=== PATIENT | male | born 1965 | race Caucasian/White ===

== ENCOUNTER 2020-09-18 16:34 | Outpatient (CLI) | payer BC, SELFPAY ==
--- NOTE | ~2020-09-18 | CT_ITS ---
EXAMINATION: CT abdomen pelvis w con INDICATION: Left and right lower quadrant pain TECHNIQUE: Computed tomographic images of the abdomen and pelvis were obtained after the administrati on of 100 cc of Omnipaque 350 intravenous contrast. The dose-length product (DLP) was 1118.24 mGy-cm. Automated exposure control and iterative reconstruction technique were employed. COMPARISON: 02/15/2014 FINDINGS: Calcified nodules of the visualized lung bases are consistent with old granulomatous diseas e. The heart size is normal. The liver is diffusely low in attenuation when compared with the spleen, consistent with hepatic steatosis. The spleen, pancreas, and adrenal glands are normal. Stones are p resent in the nondistended gallbladder. Cysts of the kidneys measure up to 8 mm on the right. There i s no free intraperitoneal gas or evidence of bowel obstruction. No pathologically enlarged abdominal or pelvic lymph nodes are identified. The appendix is normal. There are small bilateral inguinal doug ias containing fat. There is moderate lumbar spondylosis at L5-S1. IMPRESSION: 1. No CT correlate for the patient's symptoms. 2. Cholelithiasis without evidence of cholecystitis. 3. Diffuse hepatic steatosis. Reviewed, dictated and finalized at location A. HALMIC PATHOLOGIST
[2020-09-18 17:05] LABS: Basophils Absolute Auto 0.1 K/mm3 (0.0-0.1); Basophils Percent Auto 1.1 % (0.2-1.2); Eosinophils Absolute Auto 0.3 K/mm3 (0-0.3); Eosinophils Percent Auto 3.1 % (0-4.4); Hematocrit 46.8 % (42.0-52.0); Hemoglobin 16.2 g/dL (14.0-18.0); Immature Granulocyte Absolute 0.03 K/mm3 (0.00-0.031); Immature Granulocyte Percent A 0.3 % (0-0.5); Lymphocytes Absolute Auto 2.53 K/mm3 (0.9-3.2); Lymphocytes Percent Auto 24.5 % (18.3-44.2); Mean Corpuscular HGB Conc 34.6 g/dl (32-36); Mean Corpuscular Hemoglobin 31.5 pg (26-34); Mean Corpuscular Volume 90.9 fl (80-100); Mean Platelet Volume 9.1 fl (7.4-10.4); Monocytes Absolute Auto 0.8 K/mm3 (0.1-0.6); Monocytes Percent Auto 7.4 % (2.6-8.5); Neutrophils Absolute Auto 6.6 K/mm3 (1.3-6.7); Neutrophils Percent Auto 63.6 % (45.5-73.1); Platelet Count Result 241 k/mm3 (150-375); Red Blood Count 5.15 M/mm3 (4.6-6.20); Red Cell Distribution Width 13.1 % (11.5-14.5); White Blood Count 10.3 K/mm3 (4.5-10.0)
[2020-09-18 17:29] LABS: Erythrocyte Sedimentation Rate 9 mm/hr (0-20)
[2020-09-18 17:32] LABS: Estimated Glomerular Filt Rate > 60
[2020-09-18 17:52] LABS: Alanine Aminotransferase 45 U/L (4-50); Albumin Level 4.6 g/dL (3.5-5.1); Alkaline Phosphatase 59 U/L (38-126); Amylase 40 U/L (30-110); Anion Gap 6 mmol/L (8-16); Aspartate Amino Transferase 39 U/L (17-59); Bilirubin,Total 0.9 mg/dL (0.2-1.3); Blood Urea Nitrogen 17 mg/dL (9-20); CRP 0.8 mg/dL (<1.0); Calcium 9.6 mg/dL (8.4-10.2); Carbon Dioxide 32 mmol/L (22-30); Chloride 102 mmol/L (98-107); Estimated Glomerular Filt Rate > 60; Glucose 128 mg/dL (75-110); Lipase 91 U/L (23-300); Sodium 140 mmol/L (137-145)
[2020-09-22 08:42] LABS: ANA Cascade Screen Negative (Negative)
== END 2020-09-18 16:35 | disposition home or self-care (01) ==
PROVIDERS: PCP Family Medicine; Visit Provider Nurse Practitioner Family
DX: R10.31 Right lower quadrant pain (principal); R10.32 Left lower quadrant pain; K76.0 Fatty (change of) liver, not elsewhere classified; K80.20 Calculus of gallbladder without cholecystitis without obstruction
CPT/HCPCS: 36415; 74177; 80053; 82150; 83690; 85025; 85652; 86038; 86140; Q9967

== ENCOUNTER → 2022-02-11 14:01 | Outpatient (CLI) | payer BC, SELFPAY ==
--- NOTE | ~2022-02-11 | XR_ITS ---
EXAMINATION: XR lumbar spine 6V w bending DATE: 02/11/2022 14:35 INDICATION: Low back pain TECHNIQUE: Anteroposterior, lateral in neutral, flexion and extension, and bilateral oblique views of the lumbar spine, and cone-down lateral view of the lumbosacral junction were obtained. COMPARISON: 07/13/2018 FINDINGS: Elements of retrolisthesis of L3 on L4 and 2 mm of anterolisthesis of L4 on L5. No laxity i s present with flexion or extension. The vertebral body heights are maintained. There is no fracture. There is moderate loss of intervertebral disc space height at L5-S1 and mild loss of disc space heig ht throughout the remainder of the lumbar spine. Small degenerative osteophytes project from the ante rior endplates of multiple vertebral bodies. There is mild facet osteoarthritis of the lower lumbar s pine. IMPRESSION: 1. Moderate lumbar spondylosis with slight worsening since the comparison examination. No acute findi ngs. Reviewed, dictated and finalized at location A. IMPRESSION: 1. Moderate lumbar spondylosis with slight worsening since the comparison exami nation. No acute findings.
--- NOTE | ~2022-02-11 | XR_ITS ---
EXAMINATION: XR hip RT min 2V DATE: 02/11/2022 14:35 INDICATION: Right hip pain. TECHNIQUE: 2 views of right hip were obtained. COMPARISON: CT abdomen and pelvis 09/18/2020 FINDINGS: Bone alignment is normal. No fracture. There is mild right hip osteoarthritis. IMPRESSION: 1. Mild right hip osteoarthritis. Reviewed, dictated and finalized at location B.
== END ==
PROVIDERS: PCP Family Medicine; Visit Provider Nurse Practitioner Family
DX: M16.11 Unilateral primary osteoarthritis, right hip (principal); M47.896 Other spondylosis, lumbar region
CPT/HCPCS: 72114; 73502

== ENCOUNTER 2022-04-12 08:00 | Outpatient (RCR) | payer BC, SELFPAY ==
--- NOTE | 2022-03-18 09:31 | PTOPEVAL ---
PHYSICAL THERAPY INITIAL EVALUATION. Thank you for referring Bry Retana to [facility].? The patient is scheduled to be seen for therapy?1x/week for 4 weeks. Please review, sign, date and return this plan of care RAH. I agree with and certify that the following plan of care is medically necessary. Referring Physician Date Attending Provider: Vidhi Sanchez NP *PT Outpatient Evaluation Start: 03/18/22 08:28 Evaluation Information Diagnosis R hip pain Onset Nov Subjective Information Pt states his hip pain started Query Text:As Reported By Patient/ randomly in November, he Family thought he just over worked it . Since then his pain has just not gone away. He states his pain has not gotten better or worse since then. He states most of his pain in first thing in the morning and gradually gets better throughout the day. He would like to be able to sit on the floor with his grandkids. Stairs have become more challenging, he is limited to about 5 mins of sitting upright. He states he has to slouch in his chair to limit his hip pain. Pt states when he first stands up it takes about 20-30 steps for his legs to loosen up. Pain Assessment Right Hip(s) Reported Pain Level 0 Pain Description Burning,Sharp,Soreness,Tender on Palpation Pain Radiation Back Lowest Pain Intensity 0 Greatest Pain Intensity 8 Pain Aggravating Factors Bending,Prolonged Position, Sitting,Stair Climbing Interventions Used Pain Relief Interventions Used By Ice,Walking Patient Lower Extremity Range of Motion General Lower Extremity Range of Motion WFL/Left,WFL/Right Lower Extremity Muscle Strength Testing Gross Lower Extremity Strength Won hip flexion 5/5 Won knee flexion/ext 5/5 won hip extension 4+/5 L hip abduction 4-/5 R hip abduction 3/5 Muscle Length Testing Two-Joint Hip Flexor Shortened Muscles Short (R) Iliopsoas,Short (L) Iliopsoas Valorie's Test Hip Muscle Length (R) Mild Tightness,(L) Mild Tightness Right Prone Hip Internal
--- NOTE | 2022-03-22 12:44 | PCPTNOTE ---
Patient call to cancel appointment due to having to work.
--- NOTE | 2022-04-17 10:11 | PCPTNOTE ---
Patient called & cancelled scheduled appointment this date and did not give a reason why. Called patient to follow up, left voicemail with instructions to call clinic to reschedule. If do not hear from patient in one week, he will be discharged.
--- NOTE | 2022-04-19 16:41 | PCPTNOTE ---
patient left a voicemail to cancel appointment this date with no reason given.
--- NOTE | 2022-04-25 11:20 | PCPTNOTE ---
Attending Provider: Vidhi Sanchez NP Patient:Bry Retana Date of :1965 PHYSICAL THERAPY DISCHARGE SUMMARY Patient called and left voicemail to cancel all of his remaining appointments without given a reason why. Called the patient to follow up and have not heard from him, therefore he will be discharged at this time. Patient has not returned for any further treatments since 04/12/2022. Patient?s initial visit was on 03/18/2022 and he had a total of 4 visits. Thank you for referring this patient to [facility]. Please review, sign, date and return this discharge summary RAH. I have been updated about the patient's current status and I agree with discharge from the above service at this time. Referring Physician Date
== END 2022-05-06 11:30 | disposition home or self-care (01) ==
LOC: ANHHIPT 08:00
PROVIDERS: PCP Family Medicine; Visit Provider Nurse Practitioner Family
DX: M54.9 Dorsalgia, unspecified (principal); M25.551 Pain in right hip
CPT/HCPCS: 97110; 97112; 97140; 97161; 97530

== ENCOUNTER 2022-11-22 10:01 | Emergency (ER) | payer BC, SELFPAY ==
[2022-11-22] VITALS (27 sets, daily range): BP systolic 131–188; BP diastolic 84–113; PULSE 58–84; RESP 12–22; TEMP 36.2; O2SAT 95–100
--- NOTE | ~2022-11-22 | XR_ITS ---
EXAMINATION: XR chest 2V DATE: 11/22/2022 10:46 INDICATION: Chest pressure, hypertension TECHNIQUE: PA and lateral views of the chest are obtained. COMPARISON: 10/21/2019 FINDINGS: The lungs are free of acute opacities. No pleural effusion or pneumothorax. The cardiomedia stinal silhouette is normal. There is mild thoracic spondylosis. IMPRESSION: 1. No acute cardiopulmonary abnormality. Reviewed, dictated and finalized at location B. IT ADMINISTRATION SPECIALIST
--- NOTE | 2022-11-22 10:12 | ECG_ITS ---
Measurements Intervals [place] Rate: 65 P: 55 NC: 188 QRS: 25 QRSD: 90 T: 71 QT: 371 QTc: 386 Interpretive Statements SINUS RHYTHM WITHIN NORMAL LIMITS NO PREVIOUS ECG AVAILABLE FOR COMPARISON Electronically Signed On 11-22-2022 13:13:51 NATURAL SCIENCES DEPARTMENT CHAIR by Agustín Roberts M.D.
[2022-11-22 10:34] LABS: Basophils Absolute Auto 0.1 K/mm3 (0.0-0.1); Basophils Percent Auto 1.1 % (0.2-1.2); Eosinophils Absolute Auto 0.4 K/mm3 (0-0.3); Eosinophils Percent Auto 5.5 % (0-4.4); Hematocrit 46.8 % (42.0-52.0); Hemoglobin 15.8 g/dL (14.0-18.0); Immature Granulocyte Absolute 0.03 K/mm3 (0.00-0.031); Immature Granulocyte Percent A 0.4 % (0-0.5); Lymphocytes Absolute Auto 2.82 K/mm3 (0.9-3.2); Lymphocytes Percent Auto 34.9 % (18.3-44.2); Mean Corpuscular HGB Conc 33.8 g/dl (32-36); Mean Corpuscular Hemoglobin 31.1 pg (26-34); Mean Corpuscular Volume 92.1 fl (80-100); Mean Platelet Volume 9.2 fl (7.4-10.4); Monocytes Absolute Auto 0.7 K/mm3 (0.1-0.6); Monocytes Percent Auto 8.4 % (2.6-8.5); Neutrophils Percent Auto 49.7 % (45.5-73.1); Platelet Count Result 226 k/mm3 (150-375); Red Blood Count 5.08 M/mm3 (4.6-6.20); Red Cell Distribution Width 13.2 % (11.5-14.5); White Blood Count 8.1 K/mm3 (4.5-10.0)
[2022-11-22 10:44] LABS: Alanine Aminotransferase 35 U/L (6-50); Alkaline Phosphatase 59 U/L (38-126); Anion Gap 7 mmol/L (8-16); Aspartate Amino Transferase 32 U/L (17-59); Bilirubin,Total 0.7 mg/dL (0.2-1.3); Blood Urea Nitrogen 18 mg/dL (9-20); Calcium 9.3 mg/dL (8.4-10.2); Carbon Dioxide 29 mmol/L (22-30); Chloride 102 mmol/L (98-107); Estimated CRCL calculation 90 ml/min; Estimated Glomerular Filt Rate > 60; Glucose 144 mg/dL (65-110); Lipase 117 U/L (23-300); Potassium 4.1 mmol/L (3.4-5.0); Sodium 138 mmol/L (137-145)
[2022-11-22 10:46] LABS: Prothrombin Time 12.6 Seconds (11.1-14.7)
[2022-11-22 10:47] LABS: Partial Thromboplastin Time 25.9 SECONDS (22.3-36.8)
[2022-11-22 10:55] LABS: Troponin I < 0.012 ng/mL (0.000-0.034)
[2022-11-22] MEDS: ASPIRIN 81 MG CHEWABLE TABLET 324 MG PO (12:09)
[2022-11-22 13:52] LABS: Troponin I < 0.012 ng/mL (0.000-0.034)
[2022-11-22] MEDS: SODIUM CHLORIDE 0.9% IV 1,000 ML 999 ML IV CONT (13:53)
--- NOTE | 2022-11-22 14:00 | ED.RECABL ---
HPI - Recheck/Abnormal Lab/Rx General Chief Complaint: Recheck/Abnormal Lab/Rx Stated Complaint: high blood pressure Time Seen by Provider: 11/22/22 11:16 Source: patient Mode of arrival: ambulatory Limitations: no limitations History of Present Illness HPI narrative: Patient is a 57-year-old male who presents to the ED with report of elevated blood pressures. Patient reports over the last few days, he has had intermittent lightheadedness, mostly with position changes, described as though he feels woozy. He has not passed out. Today the dizziness/lightheadedness seemed more persistent. He took his blood pressure at home and noted it to be elevated in the 180s/190s systolic. He then decided come to the ED. Patient does take metoprolol 50 mg daily. He does not routinely check his blood pressure and is unsure what his baseline is. He has not missed any doses of his metoprolol. He does report having very mild left-sided chest pressure over the past couple days, described as though someone is placing a hand over his left-sided chest. He denies any current pressure. Denies difficulty breathing, vision changes, headache, abdominal pain, nausea, vomiting. Related Data Allergies Allergy/AdvReac Type Severity Reaction Status Date / Time budesonide [From Symbicort] AdvReac Intermediate abnormal Verified 01/09/22 08:51 heart beat formoterol [From Symbicort] AdvReac Intermediate abnormal Verified 01/09/22 08:51 heart beat METHALADE Allergy Unknown Unknown Uncoded 01/09/22 08:51 Review of Systems Review of Systems: CONSTITUTIONAL: Denies fever, chills, or sweats. EYES: Denies visual changes, redness, or discharge. CARDIOVASCULAR: See HPI. RESPIRATORY: Denies cough or dyspnea. GASTROINTESTINAL: Denies abdominal pain, nausea, vomiting. GENITOURINARY: Denies dysuria or hematuria. NEUROLOGIC: See HPI. All systems reviewed & are unremarkable except as noted in HPI and below [facility] Past Medical History Medical History (Updated 11/22/22 @ 15:09 by Melanie Jade PA-C) BMI 30.0-30.9,adult Cholelithiasis Hypertension Overweight with body mass index (BMI) of 28 to 28.9 in adult Paroxysmal atrial fibrillation Surgical History Surgical History (Updated 11/22/22 @ 14:02 by Melanie Jade PA-C) No pertinent past surgical history Family History Family History Father Hypertension Family history of diabetes mellitus in first degree relative Family history of coronary artery disease Mother Skin cancer Hypertension Endometrial cancer C. difficile colitis Sibling No problems noted. 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 HEAD: Normocephalic, atraumatic. EYES: PERRLA/EOMI, conjunctiva clear. NECK: Supple. No adenopathy, no masses. RESPIRATORY: Airway patent, respirations nonlabored. Clear to auscultation bilaterally, no rales, rhonchi, wheezing. CARDIOVASCULAR: Regular rate and rhythm without murmurs, rubs, or gallops. Radial pulses 2+ and equal bilaterally. ABDOMINAL: Soft, nontender, nondistended, no hepatosplenomegaly. Normoactive BS. MUSCULOSKELETAL: Moves all extremities. Strength/ROM intact without gross deformities. No chest wall tenderness. SKIN: Warm, dry, normal color. No rashes. NEURO: A&O X3. Speec
== END 2022-11-22 15:14 | disposition home or self-care (01) ==
PROVIDERS: Emergency Medicine; Emergency Provider Physician Assistant; PCP Family Medicine
DX: I10 Essential (primary) hypertension (principal); I95.1 Orthostatic hypotension; I48.0 Paroxysmal atrial fibrillation; E66.3 Overweight; Z68.28 Body mass index [BMI] 28.0-28.9, adult; Z77.22 Contact with and (suspected) exposure to environmental tobacco smoke (acute) (chronic)
CPT/HCPCS: 36415; 71046; 80053; 83690; 84484; 85025; 85610; 85730; 93005; 96360; 99284; A9270; J7030

== ENCOUNTER 2024-01-21 14:13 | Outpatient (CLI) | payer BC, SELFPAY ==
--- NOTE | ~2024-01-21 | XR_ITS ---
EXAMINATION: XR chest 2V 01/21/2024 14:35 INDICATION: Acute bronchitis PROCEDURE: 2 view chest COMPARISON: No prior studies for comparison. FINDINGS: The lungs are clear. The cardiomediastinal silhouette is within normal limits. There are no pleural effusions. There is no pneumothorax suspected. IMPRESSION: 1: NO ACUTE CARDIOPULMONARY DISEASE. Reviewed, dictated and finalized at location A.
== END 2024-01-21 14:14 ==
LOC: MICIMG 14:14
PROVIDERS: PCP Family Medicine; Visit Provider Nurse Practitioner Family
DX: J20.9 Acute bronchitis, unspecified (principal)
CPT/HCPCS: 71046

== ENCOUNTER 2024-05-27 09:31 | Outpatient (CLI) | payer BC, SELFPAY ==
--- NOTE | ~2024-05-27 | MR_ITS ---
EXAMINATION: MR shoulder RT wo con DATE: 05/27/2024 10:15 INDICATION: Right shoulder injury. Abnormal findings on diagnostic imaging. TECHNIQUE: Magnetic resonance imaging (MRI) of the right shoulder was performed without intravenous c ontrast. Sequences included axial PD-weighted FS FSE, coronal oblique PD-weighted FS FSE and T2-weigh romina FS FSE, and sagittal oblique T2-weighted FS FSE and T1-weighted FSE. COMPARISON: None. FINDINGS: Coracoacromial arch: The acromion undersurface is curved in morphology (type II). There is severe acromioclavicular joint osteoarthritis including inferiorly directed osteophytes. There is severe subacromial/subdeltoid burs itis. Rotator cuff: There is a full-thickness tear of supraspinatus, infraspinatus, and teres minor tendons measuring gre ater than 5 cm anterior to posterior by greater than 5 cm proximal to distal. There is severe tendino bernadine and partial tear of subscapularis tendon. There is increased T2-weighted signal intensity in th e muscle bellies of supraspinatus and infraspinatus, consistent with strains and/or subacute denervat ion. There is no asymmetric fatty atrophy of the rotator cuff muscle bellies. Biceps tendon and glenoid labrum: Biceps tendon is medially displaced and partially in the subscapularis tendon tear. There is mild bic eps tendinopathy. There is degeneration of the labrum without well-defined tear. Fluid: There is a moderate-sized glenohumeral joint effusion. Bones/cartilage: Glenoid cartilage is normal. Humeral head cartilage is normal. IMPRESSION: 1. Massive full-thickness rotator cuff tear. 2. Displacement of biceps tendon into a partial tear of subscapularis tendon. 3. Severe acromioclavicular joint osteoarthritis. 4. Moderate-sized glenohumeral joint effusion and severe subacromial/subdeltoid bursitis. Reviewed, dictated and finalized at location A.
== END 2024-05-27 09:32 | disposition home or self-care (01) ==
LOC: ANHIMG 09:33
PROVIDERS: PCP Family Medicine; Visit Provider Nurse Practitioner Family
DX: R93.6 Abnormal findings on diagnostic imaging of limbs (principal); S49.91XA Unspecified injury of right shoulder and upper arm, initial encounter; X58.XXXA Exposure to other specified factors, initial encounter; M19.011 Primary osteoarthritis, right shoulder; M25.411 Effusion, right shoulder
CPT/HCPCS: 73221

== ENCOUNTER 2024-07-30 12:00 | Outpatient (CLI) | payer BC, SELFPAY ==
--- NOTE | ~2024-07-30 | XR_ITS ---
Clinical Indication: Cough PA and lateral views of the chest: Comparison: 01/21/2024 Findings: The lungs are clear, without evidence of focal consolidation or pleural effusion. Cardiome diastinal silhouette is within normal limits. Bones and soft tissues are unremarkable. Impression: Normal chest. Reviewed, dictated and finalized at location . Impression: Normal chest.
== END 2024-07-30 12:01 | disposition home or self-care (01) ==
LOC: MICIMG 12:00
PROVIDERS: PCP Family Medicine; Visit Provider Nurse Practitioner Adult Health
DX: R05.9 Cough, unspecified (principal)
CPT/HCPCS: 71046

== ENCOUNTER 2025-02-04 14:34 | Outpatient (CLI) | payer OTHER, SELFPAY ==
--- OUTSIDE RECORDS SUMMARY | 2025-02-04 14:38 | XMS_ITS | Clinical Summary ---
Author Organization [facility] Address [address] [place] [id number] Care Team Providers Care Field Handyman Name Role Phone Unavailable Primary Care Provider Unavailabl e Social History Tobacco Use Types Packs/Day Years Used Date Smoking Tobacco: Never Sex and Gender Information Value Date Recorded Sex Assigned at Not on file Legal Sex Male 10:02 PM CDT Gender Identity Not on file Sexual Orientation Not on file Last Filed Vital Signs Vital Sign Reading Time Taken Comments Blood Pressure 140/90 02/28/2015 10:32 AM CDT Pulse 61 02/28/2015 10:31 AM CDT Temperature - - Respiratory Rate - - Oxygen Saturation - - Inhaled Oxygen Concentration - - Weight 102.5 kg (226 lb) 02/28/2015 10:31 AM CDT Height 185.4 cm (6' 1 ) 02/28/2015 10:31 AM CDT Body Mass Index 29.82 02/28/2015 10:31 AM CDT Plan of Treatment Health Maintenance Due Date Last Done Comments Colorectal Cancer Screening Colonoscopy (10 Years) 1965 Annual Physical 1968 Hepatitis C 1983 DTaP, Tdap and Td Vaccines ( 1 - Tdap) 1984 Pneumococcal Vaccine: 50+ Ye ars (1 of 1 - PCV) 2015 Zoster Vaccines (1 of 2) 2015 COVID-19 Vaccine ( - 2023-2 5 season) 2024 Meningococcal B Vaccine Aged Out No l onger eligible based on patient's age to complete this topic Meningococcal Vaccine Aged Out No krystle phong eligible based on patient's age to complete this topic RSV Immunizations Under 20 Months Aged Out No longer eligible based on patient's age to complete this topic
--- OUTSIDE RECORDS SUMMARY | 2025-02-04 14:38 | XMS_ITS | Referral Summary ---
Author Organization [facility] Address [address] [place] [address] Care Team Providers Care Integration Aide Name Role Phone Refugio Duran MD Primary Care Provider [phone] Encounters Date Type Department Care Team Description 12/15/2024 4:00 PM DATA DEVELOPER Office Visit [facility] Orthopaedic Surgery [address] [facility] [address] [place] [address] [place] [address] Emanuel Fermin MD Traumatic complete tear of right rotator cuff, subsequent encounter (Primary Dx) from Last 3 Months Allergies Active Allergy Reactions Criticality Noted Date Comments Erythromycin Nausea only Low 12/14/2018 Medications aspirin (ASPIR-81) 81 mg tablet 81 mg. 0 0 6 Active metoprolol XL (TOPROL-XL) 50 mg 24 hr tablet 50 mg. 0 0 6 Active Additional Information Patient taking differently:50 mgoral Daily (early AM), Indications: Atrial Arrhythmia, Informant: Self, Reported on 06/10/2024 omeprazole (PriLOSEC) 20 mg capsuleIndicati ons:Treatment of Non-Bleeding Gastric Disorder Take 1 capsule (20 mg total) by mouth as needed Active VENTOLIN HFA 90 mcg/actuation inhalerIndicati ons:Acute Asthma Attack Inhale 1 puff every 4 (four) hours as needed for wheezing or shortness of breath 1 8 Active losartan (COZAAR) 25 mg tabletIndicatio ns:hypertension Take 2 tablets (50 mg total) by mouth chili maker before breakfast 4 Active acetaminophen-c odeine (TYLENOL with CODEINE #3) 300-30 mg per tablet Take 2 tablets by mouth every 6 (six) hours as needed for pain 4 Active docusate sodium (COLACE) 100 mg capsuleIndicati ons:constipatio n Take 1 capsule (100 mg total) by mouth 2 (two) times a day for 14 days 28 capsule 4 Active HYDROcodone-calixto taminophen (NORCO) 5-325 mg per tabletIndicatio ns:Pain TAKE ONE TO TWO TABLETS EVERY 4 TO 6 HOURS PRN PAIN 40 tablet 4 Active ondansetron (ZOFRAN) 4 mg tablet Take 1 tablet (4 mg total) by mouth every 8 (eight) hours as needed for nausea or vomiting 20 tablet 4 Active oxyCODONE (ROXICODONE) 5 mg immediate release tabletIndicatio ns:Pain TAKE ONE TO TWO TABLETS EVERY 4 TO 6 HOURS PRN PAIN 40 tablet 4 Active Active Problems Problem Noted Date Diagnosed Date Bicipital tendinitis of right shoulder 4 Traumatic complete tear of right rotator cuff Chest discomfort 12/14/2018 SUE (obstructive sleep apnea) 12/14/2018 Gastroesophageal reflux disease 12/14/2018 Lipid screening 12/14/2018 De Quervain's tenosynovitis, right 12/14/2018 Obesity with body mass index 30 or greater 12/05 Increased body mass index (BMI) 09/04/2016 Atrial fibrillation 05/09/2016 Tachycardia, unspecified 05/09/2016 Hypertension 05/09/2016 Hyperlipidemia LDL goal <130 05/09/2016 Shortness of breath 05/09/2016 Social History Tobacco Use Types Packs/Day Years Used Date Smoking Tobacco: Never Passive Smoke Exposure: Never Smokeless Tobacco: Never Tobacco Cessation:Counseling Given: Not Answered Alcohol Use Standard Drinks/Week Comments No 0 (1 standard drink = 0.6 oz pur e alcohol) AUDIT-C Answer Date Recorded Q1: How often do you have a drink containing alcohol? Never 06/21/2024 Q2: How many drinks containi ng alcohol do you have on a typical day when you are drinking? Patient does not drink 4 Q3: How often do you have si x or more drinks on one occasion? Never 06/21/2024 Personal Safety Answer Date Recorded Have you ever been in or are you currently in a harmful physical or emotional relationship or is someone making you feel afraid or unsafe? Denies 06/21/2024 Sex and Gender Information Value Date Recorded Sex Assigned at Not on file Legal Sex Male 6:19 AM DATA DEVELOPER Gender Identity Not on file Sexual Orientation Not on file Last Filed Vital Signs Vital Sign Reading Time Taken Comments Blood Pressure 133/81 06/21/2024 3:40 PM CDT Pulse 75 06/21/2024 3:40 PM CDT Temperature 37.1 C (98.8 F) 06/21/2024 2:41 PM CDT Respiratory Rate 20 06/21/2024 3:40 PM CDT Oxygen Saturation 93% 06/21/2024 3:40 PM CDT Inhaled Oxygen Concentration - - Weight 98 kg (216 lb) 06/10/2024 8:55 AM CDT Height 186.7 cm (6' 1.5 ) 06/10/2024 8:55 AM CDT Body Mass Index 28.11 06/10/2024 8:55 AM CDT Plan of Treatment Not on file Medical Devices Implanted Type Area Hot Plate Plywood Press Offbearer Device Identifier Shelf Expiration Date Model / Serial / Lot [employer] Corkscrew Suturetape 5.5mm 14.7mm Bioabsorbable Full Thread 1.3mm Ar-[id number] - [id number] Implanted:Qty: 1 on 06/21/2024 by Emanuel Fermin MD at [facility] [place] Right: Shoulder [employer] 01/10/2026 AR-1927BCT / / [id number] [employer] Corkscrew Suturetape 5.5mm 14.7mm Bioabsorbable Full Thread 1.3mm Ar-1927bct - [id number] Implanted:Qty: 1 on 06/21/2024 by Emanuel Fermin MD at [facility] Right: Shoulder [employer] 01/10/2026 AR-1927BCT / / [id number] [employer] Corkscrew Suturetape 5.5mm 14.7mm Bioabsorbable Full Thread 1.3mm Ar-1927bct - [id number] Implanted:Qty: 1 on 06/21/2024 by Emanuel Fermin MD at [facility] [place] Right: Shoulder [employer] 01/10/2026 AR-1927BCT / / [id number] [employer] Ar-2324 Bcm Swivelock 4.75mm 24.5mm Self Punch Vent Shoulder [place] Suture - [id number] Implanted:Qty: 1 on 06/21/2024 by Emanuel Fermin MD at [facility] [place] Right: Shoulder [employer] 12/11/2027 AR-[id number] / / [id number] [employer] Ar-2324 Bcm [place]ivel[place] 4.75mm 24.5mm Self Punch Vent Shoulder [place] Suture - [id number] Implanted:Qty: 1 on 06/21/2024 by Emanuel Fermin MD at [facility] [place] Right: Shoulder [employer] 10/12/2027 AR-[id number] / / [id number] [employer] Large Eyelet Pectoralis Button Fixation Latex Free Ar-2267 - [id number] Implanted:Qty: 1 on 06/21/2024 by Emanuel Fermin MD at [facility] [place] Right: Shoulder [employer] 07/12/2028 AR-2267 / / [id number] Insurance [facility] [employer] OPEN ACCESS Care Teams Integration Aide Relationship Specialty Start Date End Date Refugio Duran MD PCP - General 08/05/16
--- OUTSIDE RECORDS SUMMARY | 2025-02-04 14:38 | XMS_ITS | Clinical Summary ---
Author Organization [facility] Address [address] [place] [address] Care Team Providers Care Tafe Lecturer Name Role Phone Refugio Duran MD Primary Care Provider + [phone] Allergies Active Allergy Reactions Criticality Noted Date [...] 2 tablets (50 mg total) by mouth negative cutter before breakfast 4 Active acetaminophen-c odeine (TYLENOL [...] goal <130 05/09/2016 Shortness of breath 05/09/2016 Encounters Date Type Department Care Team Description 12/15/2024 4:00 PM STONER HAND Office Visit [facility] Orthopaedic Surgery [facility] [address]th [place] [address] [place] [address] Emanuel Fermin MD Traumatic complete tear of right rotator cuff, subsequent encounter (Primary Dx) from Last 3 Months Surgical History Surgery Date Site/Laterality Comments ARM SURGERY 10/13/1978 - 10/12/1979 SINUS SURGERY 10/13/2001 - 10/12/2002 OTHER SURGICAL HISTORY 10/13/2016 - 10/12/2017 dilation Medical History Medical History Date Comments Hypertension Hypertension Asthma Asthma Hx Other Medical Palpitation; Co mments: MPB 08/05/2016 - Acid indigestion Asthma Delayed emergence from gener al anesthesia ~2001 sinus surgery: pt repo rts difficulty waking x 35 min after failed sinus surgery([facility] [place]). Remembers waking up and was crying and heard nurse say cancel the ambulance. No known interventions and was discharged to home the same day. Awareness under anesthesia repor ts intra-op awareness with esophageal dilation ~ 7-8 years ago. Remembers clearly hearing surgeon talking. Unsure if intubated or if able to move. Reports being non-traumatic ([address] [place] [address]). Reports age 7-8 had arm fracture and had to use different gas because he didn't go out right away with first attempt Motion sickness Family History Medical History Relation Name Comments Diabetes Father Family history of diabetes mellitus - (Added by TW Conv) Heart attack Father Family history of heart attack - (Added by TW Conv) Hypertension Father Family history of hypertension - (Added by TW Conv) Stroke Father Family history of stroke - (Added by TW Conv) Diabetes Mother Family history of diabetes mellitus - (Added by TW Conv) Heart attack Mother Family history of heart attack - (Added by TW Conv) Hypertension Mother Family history of hypertension - (Added by TW Conv) Stroke Mother Family history of stroke - (Added by TW Conv) Anesthesia problems Neg Hx Relation Name Status Comments Father Mother Sister 1 Alive Sister 2 Alive Social History Tobacco Use Types Packs/Day Years [...] you are drinking? Patient does not drink Q3: How often do you have si [...] on file Legal Sex Male 6:19 AM STONER HAND Gender Identity Not on file Sexual Orientation Not on file Obstetrics History Last Filed Vital Signs Vital Sign Reading [...] 06/10/2024 8:55 AM CDT Plan of Treatment Health Maintenance Due Date Last Done Comments Colon Cancer Screening-Colonoscopy 1965 Depression Screening 1965 Hepatitis C Screening 1965 Prostate Cancer Screening-PSA 1965 Hepatitis B Screening 1983 Regular Well Visit/Exam 18-64 1983 Zoster Vaccine (2 of 2) 07/11/2022 05/16/2022 Covid-19 Vaccine ( season) 2024 01/25/2021, 01/04/2021 Influenza Vaccine (Season Ended) 2025 07/20/2022, 08/22/2018, 07/08/2016, Additional history exists DTaP/Tdap/Td Vaccine (2 - Td or Tdap) 09/23/2028 09/23/2018, 05/01/1993 Pneumococcal vaccine <65 Aged Out No longer eligible based on patient's age to complete this topic Medical Devices Implanted 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 Shelf Expiration Date Model / Serial / Lot [employer] Corkscrew Suturetape 5.5mm 14.7mm Bioabsorbable Full Thread 1.3mm Ar-1927bct - [id number] Implanted:Qty: 1 on 06/21/2024 by Emanuel Fermin MD at [facility] Right: Shoulder [employer] 01/10/2026 AR-1927BCT / / [id number] [employer] Corkscrew Suturetape 5.5mm 14.7mm Bioabsorbable Full Thread 1.3mm Ar-1927bct - [id number] Implanted:Qty: 1 on 06/21/2024 by Emanuel Fermin MD at [facility] Right: Shoulder [employer] 01/10/2026 AR-1927BCT / / [id number] [employer] Corkscrew Suturetape 5.5mm 14.7mm Bioabsorbable Full Thread 1.3mm Ar-1927bct - [id number] Implanted:Qty: 1 on 06/21/2024 by Emanuel Fermin MD at [facility] Right: Shoulder [employer] 01/10/2026 AR-1927BCT / / [id number] [employer] Ar-2324 Bcm Swivelock 4.75mm 24.5mm Self Punch Vent Shoulder [place] Suture - [id number] Implanted:Qty: 1 on 06/21/2024 by Emanuel Fermin MD at [facility] Right: Shoulder [employer] 12/11/2027 AR-[id number] / / [id number] [employer] Ar-2324 Bcm Swivelock 4.75mm 24.5mm Self Punch Vent Shoulder [place] Suture - [id number] Implanted:Qty: 1 on 06/21/2024 by Emanuel Fermin MD at [facility] Right: Shoulder [employer] 10/12/2027 AR-2324BCM / / [id number] [employer] 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
--- OUTSIDE RECORDS SUMMARY | 2025-02-04 14:38 | XMS_ITS | Encounter Summary ---
Author Organization [facility] Address [address] [place] [address] Care Team Providers Care Email Specialist Name Role Phone Unavailable Primary Care Provider Unavailabl e Encounter Details Date Type Department Care Team (Late st Contact Info) Description 06/07/2016 Abstract [facility] CONVERSION [address] [place] [address] , Generic Conversion, Social History Tobacco Use Types Packs/Day Years Used Date Smoking Tobacco: Never Sex and Gender Information Value Date Recorded Sex Assigned at Not on file Legal Sex Male 10:02 PM CDT Gender Identity Not on file Sexual Orientation Not on file documented as of this encounter Plan of Treatment Not on file documented as of this encounter Visit Diagnoses Not on filedocumented in this encounter
== END 2025-02-04 14:35 | disposition home or self-care (01) ==
PROVIDERS: Visit Provider Nurse Practitioner Family
DX: R00.2 Palpitations (principal)
CPT/HCPCS: 93242